=== PATIENT | female | born 1980 | race Caucasian/White ===

== ENCOUNTER 2025-02-19 16:33 | Emergency (ER) | payer BC ==
[~2025-02-19] VITALS: Ht 170.2 cm; Wt 90.5 kg
[~2025-02-19 16:33] MED LIST: AUGMENTIN 875-1 EACH PO; PROVENTIL HFA6.7 GM INH
[2025-02-19 16:52] LABS: BASOPHILS 0.7 % (0.1-1.2); EOSINOPHILS 0.6 % (0.7-5.8); LYMPHOCYTES 26.8 % (19.3-51.7); MCH 30.1 PG (25.6-32.2); MCHC 33.9 g/dL (32.2-35.5); MCV 88.9 fL (79.4-94.8); MONOCYTES 5.5 % (4.7-12.5); NEUTROPHILS 65.8 % (34.0-71.1); RBC 4.78 M/uL (3.93-5.22)
[2025-02-19] MEDS ORDERED: KETOROLAC TROMETHAMINE 30 MG/ML VIAL IV ONE (17:00)
[2025-02-19] MEDS ORDERED: HYDROmorphone HCL 1 MG/ML SYR IV PRN ×2 (17:00→17:45)
[2025-02-19 17:02] LABS: ALT (SGPT) 26.0 U/L (14-59); AST (SGOT) 18.0 U/L (15-37); GLOMERULAR FILTRATION RATE,EST 102.0 mL/min (>60); PROTEIN, TOTAL 7.7 g/dL (6.4-8.2); UREA NITROGEN 11.0 mg/dL (7-18)
[2025-02-19] MEDS ORDERED: KETAMINE in NS 50 MG/5 ML SYR IV ONE (17:45)
[2025-02-19] MEDS ORDERED: LORazepam 2 MG/ML VIAL IV ONE (19:45)
[2025-02-19] MEDS ORDERED: LACTATED RINGER'S 1,000 ML IV SCH (20:15)
[2025-02-19 22:04] VITALS: BP 162/95
[2025-02-19 22:19] LABS: BLOOD/HGB, URINE TRACE-I (Negative); KETONE, URINE NEGATIVE (Negative); LEUK ESTERASE, URINE NEGATIVE (negative); NITRITE, URINE NEGATIVE (negative)
[2025-02-19 22:26] LABS: BACTERIA, URINE 1+ /hpf (negative); CASTS, URINE NONE SEEN \\lpf; CRYSTALS, URINE NONE SEEN (0-1+); EPITHELIAL CELLS, URINE SQUAMOUS 2+ /lpf (0-1+); REFLEX CULTURE, URINE No (No)
== END 2025-02-19 22:10 | disposition short-term general hospital (02) ==
LOC: ED 16:33
PROVIDERS: Emergency Medicine
DX: M54.16 Radiculopathy, lumbar region (principal); E03.9 Hypothyroidism, unspecified; F17.200 Nicotine dependence, unspecified, uncomplicated; Z79.899 Other long term (current) drug therapy
CPT/HCPCS: 36415; 74177; 80053; 81001; 84703; 85025; 96374; 96375; 96376; 99285-25; J1171; J1885; J2060; J3490; J7121; Q9967